=== PATIENT | female | born 1940 | race Caucasian/White ===

== ENCOUNTER 2018-01-23 16:58 | Inpatient (IN) ==
--- NOTE | 2018-01-23 17:02 | Emergency Department Note ---
Disposition Clinical Impression: COPD (chronic obstructive pulmonary disease), Acute exacerbation of chronic obstructive pulmonary disease (COPD), Hyperglycemia Disposition: Admitted As Inpatient Condition: Fair General Adult HPI - General Chief complaint: ED Shortness of Breath/Dyspnea Stated complaint: "sob" Time Seen by Provider: 01/23/18 17:00 - Related Data Home Medications Medication Instructions Recorded Confirmed Metformin HCl [Glucophage] 1,000 mg PO BID 09/02/16 01/23/18 Albuterol Sulfate [Ventolin Hfa] 2 puff IH Q4H PRN 01/23/18 01/23/18 Amoxicillin/Clavulanate [Augmentin] 1 tab PO BID 01/23/18 01/23/18 LORazepam [Ativan] 0.5 mg PO TID PRN 01/23/18 01/23/18 Losartan/Hydrochlorothiazide 1 tab PO DAILY 01/23/18 01/23/18 [Losartan-Hctz 50-12.5 mg Tab] Metoprolol Succinate [Toprol Xl] 25 mg PO DAILY 01/23/18 01/23/18 Pioglitazone HCl [Actos] 15 mg PO DAILY 01/23/18 01/23/18 Temazepam [Restoril] 30 mg PO HS 01/23/18 01/23/18 glipiZIDE [Glipizide] 20 mg PO BID 01/23/18 01/23/18 Allergies Allergy/AdvReac Type Severity Reaction Status Date / Time No Known Allergies Allergy Verified 01/01/18 17:03 Past Medical History - Past Medical History Medical history: Reports: coronary artery disease, diabetes, hypertension Psychiatric history: Reports: no psych history - Social History Smoking Status: Former smoker Smokeless Tobacco Status: No Alcohol use: Reports: none Drug use: Reports: none Course Vital Signs Temperature 97.3 F L 01/23/18 17:06 Pulse Rate 111 01/23/18 17:06 Respiratory Rate 18 01/23/18 17:06 Blood Pressure 150/86 01/23/18 17:06 O2 Sat by Pulse Oximetry 95 01/23/18 17:06 Temperature 98.5 F 01/23/18 20:11 Pulse Rate 111 01/23/18 20:11 Respiratory Rate 16 01/23/18 20:11 Blood Pressure 135/73 01/23/18 20:11 O2 Sat by Pulse Oximetry 94 01/23/18 20:11 Oxygen Delivery Oxygen Delivery Nasal Cannula Medical Decision Making - Lab Data Result diagrams: 01/23/18 17:26 01/23/18 17:26 Lab Results 01/23/18 01/23/18 01/23/18 Range/Units 17:26 17:26 17:26 WBC 10.9 (4.3-11.1) K/mcL RBC 4.43 (3.82-4.97) M/mcL Hgb 14.1 (11.5-15.4) g/dL Hct 41.4 (35.3-44.9) % MCV 93.5 (83.0-100.0) fL MCH 31.8 (28.0-33.3) pg MCHC 34.1 (31.6-35.5) g/dL RDW 12.5 (11.5-14.5) % Plt Count 211 (140-400) K/mcL MPV 11.4 (9.4-12.4) fL Immature Gran % 0.2 (0-4) % Seg Neutrophils % 67.5 % Lymphocytes % 21.6 % Monocytes % 9.2 % Eosinophils % 1.0 % Basophils % 0.5 % Neutrophils # 7.4 (1.6-8.9) K/mcL Lymphocytes # 2.4 (0.6-4.6) K/mcL Monocytes # 1.0 (0.0-1.3) K/mcL Eosinophils # 0.1 (0.0-0.6) K/mcL Basophils # 0.1 (0.0-0.2) K/mcL Sodium 138 (136-145) mEq/L Potassium 3.8 (3.5-5.1) mEq/L Chloride 105 (98-107) mEq/L Carbon Dioxide 19 L (23-29) mEq/L BUN 16 (8-23) mg/dL Creatinine 0.90 (0.60-1.20) mg/dL Est GFR ( Amer) > 60 (> 60) Est GFR (Non-Af Amer) > 60 (> 60) BUN/Creatinine Ratio 18 (6-26) Glucose 169 H (70-105) mg/dL Est Mean Plasma Glucose mg/dl Hemoglobin A1c ( - 5.6) % Calculated Osmolality 291 (280-300) Calcium 9.5 (8.6-10.3) mg/dL Troponin I < 0.03 (< 0.04) ng/mL B-Natriuretic Peptide 19 (Less than 100) pg/mL 01/23/18 Range/Units 17:26 WBC (4.3-11.1) K/mcL RBC (3.82-4.97) M/mcL Hgb (11.5-15.4) g/dL Hct (35.3-44.9) % MCV (83.0-100.0) fL MCH (28.0-33.3) pg MCHC (31.6-35.5) g/dL RDW (11.5-14.5) % Plt Count (140-400) K/mcL MPV (9.4-12.4) fL Immature Gran % (0-4) % Seg Neutrophils % % Lymphocytes % % Monocytes % % Eosinophils % % Basophils % % Neutrophils # (1.6-8.9) K/mcL Lymphocytes # (0.6-4.6) K/mcL Monocytes # (0.0-1.3) K/mcL Eosinophils # (0.0-0.6) K/mcL Basophils # (0.0-0.2) K/mcL Sodium (136-145) mEq/L Potassium (3.5-5.1) mEq/L Chloride (98-107) mEq/L Carbon Dioxide (23-29) mEq/L BUN (8-23) mg/dL Creatinine (0.60-1.20) mg/dL Est GFR ( Amer) (> 60) Est GFR (Non-Af Amer) (> 60) BUN/Creatinine Ratio (6-26) Glucose (70-105) mg/dL Est Mean Plasma Glucose 260 mg/dl Hemoglobin A1c 10.7 H ( - 5.6) % Calculated Osmolality (280-300) Calcium (8.6-10.3) mg/dL Troponin I (< 0.04) ng/mL B-Natriuretic Peptide (Less than 100) pg/mL Attestation Statement - Attestation Attestation: I examined this patient and my medical decision-making was reviewed with the Resident Physician. I agree with the documented findings, disposition and treatment plan as described except to the extent set forth below. [id number] time provided Patient arrives by EMS. She complains of cough and dyspnea. She has recently completed 2 separate antibiotics. She is not oxygen dependent. She has a nonproductive cough on exam
[2018-01-23] MEDS ORDERED: Ipratropium/Albuterol Neb 3 ML IH ONE (17:16)
[2018-01-23] MEDS ORDERED: methylPREDNISolone 125 MG/2 ML VIAL IVP ONE (17:16)
--- NOTE | 2018-01-23 17:20 | Emergency Department Note ---
Disposition Clinical Impression: Acute exacerbation of chronic obstructive pulmonary disease (COPD), Hyperglycemia COPD (chronic obstructive pulmonary disease) Qualifiers: COPD type: unspecified COPD Qualified Code(s): J44.9 - Chronic obstructive pulmonary disease, unspecified Disposition: Admitted As Inpatient Condition: Fair Time of Disposition: 18:28 SOB HPI - General Chief Complaint: ED Shortness of Breath/Dyspnea Stated Complaint: "sob" Time Seen by Provider: 01/23/18 17:00 Source: patient, family, EMS Mode of arrival: EMS Limitations: no limitations Nursing Notes Reviewed: Yes Vital Signs Reviewed: Yes - History of Present Illness 77-year-old female with a history of hypertension, diabetes, former smoker presents for evaluation of dyspnea. Patient states symptom onset is been over the past month. States she is side to providers during that timeframe and her symptoms have not improved. Patient states she was at urgent care a couple weeks ago and was prescribed an antibiotic, steroid, and nebulized treatments. Patient states that she continued to have symptoms following relief that therapy. Patient saw her doctor on Friday and was prescribed a second antibiotic. Patient states that her symptoms are not improved. Patient is not any steroids currently. Patient denies any fevers. Does note a white clear sputum. Patient denies any chest pain. Denies any lower leg swelling. No history of ACS or congestive heart failure. No history of PE or DVTs. EMS reported the patient was 91% on room air and does not have oxygen at baseline. Family was concerned that the patient was conversational dyspneic earlier today and prompted the patient to go to the ER. - Related Data Home Medications Medication Instructions Recorded Confirmed Metformin HCl [Glucophage] 1,000 mg PO BID 09/02/16 01/23/18 Albuterol Sulfate [Ventolin Hfa] 2 puff IH Q4H PRN 01/23/18 01/23/18 Amoxicillin/Clavulanate [Augmentin] 1 tab PO BID 01/23/18 01/23/18 LORazepam [Ativan] 0.5 mg PO TID PRN 01/23/18 01/23/18 Losartan/Hydrochlorothiazide 1 tab PO DAILY 01/23/18 01/23/18 [Losartan-Hctz 50-12.5 mg Tab] Metoprolol Succinate [Toprol Xl] 25 mg PO DAILY 01/23/18 01/23/18 Pioglitazone HCl [Actos] 15 mg PO DAILY 01/23/18 01/23/18 Temazepam [Restoril] 30 mg PO HS 01/23/18 01/23/18 glipiZIDE [Glipizide] 20 mg PO BID 01/23/18 01/23/18 Allergies Allergy/AdvReac Type Severity Reaction Status Date / Time No Known Allergies Allergy Verified 01/01/18 17:03 All systems ED: reviewed and negative except as stated. Constitutional: Denies: fever Cardiovascular: Denies: chest pain Respiratory: Reports: cough, dyspnea, sputum production. Denies: wheezes Gastrointestinal: Denies: abdominal pain, nausea, vomiting Past Medical History - Past Medical History Source: patient, obtained from family Medical history: Reports: coronary artery disease, diabetes, hypertension Psychiatric history: Reports: no psych history - Social History Smoking Status: Former smoker Smokeless Tobacco Status: No Alcohol use: Reports: none Drug use: Reports: none Physical Exam - General Limitations: no limitations General appearance: alert, in no apparent distress - Head Head exam: atraumatic - Eye Eye exam: Present: normal appearance - ENT ENT exam: normal exam, mucous membranes moist - Neck Neck exam: Present: normal inspection - Chest Chest inspection: Present: normal inspection, symmetric chest wall rise - Respiratory Respiratory exam: Present: prolonged expiratory phase, other (diminished bibasilar.). Absent: respiratory distress - Cardiovascular Cardiovascular exam: Present: normal rhythm, tachycardia. Absent: systolic murmur - Abdominal Exam Abdominal exam: Present: soft, Non-Tender - Extremities Exam Extremities exam: Present: normal inspection. Absent: pedal edema - Expanded Lower Extremity Exam Neurovascular/Tendon exam: Present: normal capillary refill - Back Exam Back exam: Present: normal inspection - Neurological Exam Neurological exam: Present: alert, oriented X3 - Skin Skin exam: Present: warm, dry, intact, normal color Course Course Narrative: Patient seen and examined. Patient presents with signs symptoms consistent of COPD exacerbation. Patient does have history of being a former smoker however the family continues to smoke and the patient's continued to be exposed to secondhand smoke. Will check basic labs chest x-ray nebs and steroids. Disposition likely admission as the patient is hypoxic requiring oxygen. - Reevaluation(s) Reevaluation #1: Patient seen and examined. Patient states her breathing has improved. Patient' s lungs appear clear. Patient remains tachycardic however still likely secondary to her recent therapy with nebs. Awaiting labs. No needs at this time. Time: 18:16 Reevaluation #2: Seen and examined. Patient's family at bedside. Updated on plan of care. Time: 19:14 Vital Signs Temperature 97.3 F L 01/23/18 17:06 Pulse Rate 111 01/23/18 17:06 Respiratory Rate 18 01/23/18 17:06 Blood Pressure 150/86 01/23/18 17:06 O2 Sat by Pulse Oximetry 95 01/23/18 17:06 Temperature 98.5 F 01/23/18 20:11 Pulse Rate 111 01/23/18 20:11 Respiratory Rate 16 01/23/18 20:11 Blood Pressure 135/73 01/23/18 20:11 O2 Sat by Pulse Oximetry 94 01/23/18 20:11 Oxygen Delivery Oxygen Delivery Nasal Cannula Shortness of Breath/Dyspnea - MDM Narrative Medical decision making narrative: 69-year-old female patients for evaluation of dyspnea. Patient does have a 3 week history of said symptoms. Appeared to intermittently improve following treatment with bronchitis for the past couple weeks with however has recurred. Patient does have a chronic smoking history and is exposed to secondhand smoke. Patient was conversational dyspneic per family prior to arrival. Patient received nebs and steroids. Patient's ED evaluations consistent with a COPD exacerbation. Given the patient's sputum production antibiotics were initiated. Patient is requiring some oxygen supplementation and does not have oxygen at home. Patient will require aggressive nebs as well as close monitoring. Patient will be admitted to the hospital service for continued aerosols, IV antibiotics and oxygen therapy. Patient's symptoms are less consistent with a pulmonary embolism. Given the timeframe as well as the patient's history of smoking with improvement initially with bronchodilators and steroids the patient likely has an element of chronic bronchitis AND will be admitted for an acute exacerbation. - Lab Data Lab results reviewed: Yes I reviewed the patient's lab results. Result diagrams: 01/23/18 17:26 01/23/18 17:26 Lab Results 01/23/18 01/23/18 01/23/18 Range/Units 17:26 17:26 17:26 WBC 10.9 (4.3-11.1) K/mcL RBC 4.43 (3.82-4.97) M/mcL Hgb 14.1 (11.5-15.4) g/dL Hct 41.4 (35.3-44.9) % MCV 93.5 (83.0-100.0) fL MCH 31.8 (28.0-33.3) pg MCHC 34.1 (31.6-35.5) g/dL RDW 12.5 (11.5-14.5) % Plt Count 211 (140-400) K/mcL MPV 11.4 (9.4-12.4) fL Immature Gran % 0.2 (0-4) % Seg Neutrophils % 67.5 % Lymphocytes % 21.6 % Monocytes % 9.2 % Eosinophils % 1.0 % Basophils % 0.5 % Neutrophils # 7.4 (1.6-8.9) K/mcL Lymphocytes # 2.4 (0.6-4.6) K/mcL Monocytes # 1.0 (0.0-1.3) K/mcL Eosinophils # 0.1 (0.0-0.6) K/mcL Basophils # 0.1 (0.0-0.2) K/mcL Sodium 138 (136-145) mEq/L Potassium 3.8 (3.5-5.1) mEq/L Chloride 105 (98-107) mEq/L Carbon Dioxide 19 L (23-29) mEq/L BUN 16 (8-23) mg/dL Creatinine 0.90 (0.60-1.20) mg/dL Est GFR ( Amer) > 60 (> 60) Est GFR (Non-Af Amer) > 60 (> 60) BUN/Creatinine Ratio 18 (6-26) Glucose 169 H (70-105) mg/dL Est Mean Plasma Glucose mg/dl Hemoglobin A1c ( - 5.6) % Calculated Osmolality 291 (280-300) Calcium 9.5 (8.6-10.3) mg/dL Troponin I < 0.03 (< 0.04) ng/mL B-Natriuretic Peptide 19 (Less than 100) pg/mL 01/23/18 Range/Units 17:26 WBC (4.3-11.1) K/mcL RBC (3.82-4.97) M/mcL Hgb (11.5-15.4) g/dL Hct (35.3-44.9) % MCV (83.0-100.0) fL MCH (28.0-33.3) pg MCHC (31.6-35.5) g/dL RDW (11.5-14.5) % Plt Count (140-400) K/mcL MPV (9.4-12.4) fL Immature Gran % (0-4) % Seg Neutrophils % % Lymphocytes % % Monocytes % % Eosinophils % % Basophils % % Neutrophils # (1.6-8.9) K/mcL Lymphocytes # (0.6-4.6) K/mcL Monocytes # (0.0-1.3) K/mcL Eosinophils # (0.0-0.6) K/mcL Basophils # (0.0-0.2) K/mcL Sodium (136-145) mEq/L Potassium (3.5-5.1) mEq/L Chloride (98-107) mEq/L Carbon Dioxide (23-29) mEq/L BUN (8-23) mg/dL Creatinine (0.60-1.20) mg/dL Est GFR ( Amer) (> 60) Est GFR (Non-Af Amer) (> 60) BUN/Creatinine Ratio (6-26) Glucose (70-105) mg/dL Est Mean Plasma Glucose 260 mg/dl Hemoglobin A1c 10.7 H ( - 5.6) % Calculated Osmolality (280-300) Calcium (8.6-10.3) mg/dL Troponin I (< 0.04) ng/mL B-Natriuretic Peptide (Less than 100) pg/mL - Radiology Data Radiology results reviewed: Yes I reviewed the patient's radiology results. Chest X-Ray 01/23/18 17:16 IMPRESSION: No acute abnormality. D/ / Cesar Hicks MD / Cesar Hicks MD Interpreting Provider: Cesar Hicks MD - EKG Data EKG attestation: Yes I reviewed and interpreted this EKG. EKG shows normal: Reports: sinus rhythm Rate: Reports: tachycardia Rhythm: Reports: NSR Hettinger/QRS: Reports: normal, LBBB Interpretation: Reports: no acute changes, unchanged when compared to prior tracing (date), nonspecific ST-T wave changes S.Donell - Carl Situation: Demographics Background: Presenting Complaint Assessment: Vital Signs, Course and respsone to treatment, Patient/Family Expectation Recommendation: Barrier(s) to disposition, Recommendation based on pending studies, treatments, or consults Carl Report Given to: Dr. Margarito Henry Repor Time: 18:43
[2018-01-23] MEDS ORDERED: predniSONE 20 MG TABLET PO ONE (17:22)
[2018-01-23 17:38] LABS: Basophils # 0.1 K/mcL (0.0-0.2); Basophils % 0.5 %; Eosinophils # 0.1 K/mcL (0.0-0.6); Hematocrit 41.4 % (35.3-44.9); Hemoglobin 14.1 g/dL (11.5-15.4); Immature Granulocytes % 0.2 % (0-4); Lymphocytes # 2.4 K/mcL (0.6-4.6); Lymphocytes % 21.6 %; Mean Corpuscular HGB Conc 34.1 g/dL (31.6-35.5); Mean Corpuscular Hemoglobin 31.8 pg (28.0-33.3); Mean Corpuscular Volume 93.5 fL (83.0-100.0); Mean Platelet Volume 11.4 fL (9.4-12.4); Monocytes % 9.2 %; Neutrophils # 7.4 K/mcL (1.6-8.9); Platelet Count 211 K/mcL (140-400); Red Blood Count 4.43 M/mcL (3.82-4.97); Red Cell Distribution Width 12.5 % (11.5-14.5); Segmented Neutrophils % 67.5 %
[2018-01-23 18:02] LABS: BUN/Creatinine Ratio 18 (6-26); Blood Urea Nitrogen 16 mg/dL (8-23); Calcium 9.5 mg/dL (8.6-10.3); Carbon Dioxide 19 mEq/L (23-29); Chloride 105 mEq/L (98-107); Glucose 169 mg/dL (70-105); Osmolality,Calculated 291 (280-300); Potassium 3.8 mEq/L (3.5-5.1); Sodium 138 mEq/L (136-145); eGFR For Non-African Americans > 60 (> 60)
[2018-01-23 18:03] LABS: Troponin I < 0.03 ng/mL (< 0.04)
[2018-01-23] MEDS ORDERED: Azithromycin 250 MG TABLET PO ONE (18:21)
[2018-01-23] MEDS ORDERED: cefTRIAXone 1,000 MG in Water for inj. (sterile) 20 ML 10 ML IVP ONE (18:21)
[2018-01-23] MEDS ORDERED: 0.9 % Sodium Chloride 500 ML IVC ONE (18:28)
[2018-01-23] MEDS ORDERED: Naloxone 0.4 MG/ML INJ IVP PRN (19:27)
[2018-01-23] MEDS ORDERED: *HR* LORazepam 0.5 MG TABLET PO PRN (19:29)
[2018-01-23] MEDS ORDERED: *HR* Dextrose 50 % in Water (Syg) 50 ML SYRINGE IVP PRN (19:30)
[2018-01-23] MEDS ORDERED: Dextrose Gel 15 GM/37.5 ML TUBE PO PRN ×2 (19:30)
[2018-01-23] MEDS ORDERED: D5% in Water 1,000 ML IVC PRN (19:30)
[2018-01-23] MEDS: Ipratropium/Albuterol Neb 3 ML IH SCH ×2 (19:55→23:32)
[2018-01-23 19:56] LABS: Estimated Average Glucose 260 mg/dl; Hemoglobin A1C 10.7 %
--- NOTE | 2018-01-23 20:56 | Internal Med History&Physical ---
Date of Encounter: 01/23/18 Time of Encounter: 20:45 Internal Medicine - H&P: HPI Chief complaint: Shortness of breath, coughing and wheezing of about a month duration History of present illness: Ms. Dumas is a 77 year old female with pmh of tobacco abuse, hypertension , diabetes presenting with complaints of shortness of breath of a month duration. Patient notes she doesn't have a prior diagnosis of COPD and symptoms were sudden onset. She says she swallowed a lewis seed and went to the ER, and has been short of breath, and wheezing ever since even though all images came back negative in the ER. She has been to urgent care twice in amonth with no relief and she was discharged on antibiotics and inhalers with no relief. She came to the ER today with worsening, shortness of breath, wheezing and cough productive of phlegm. She denies any fevers, chills or any ther acute symptoms. Her symptoms improved with breathing treatments, steroids and antibiotics in the ER Past Med Surg Social Fam HX - Past Medical History Medical history: coronary artery disease, diabetes, hypertension Psychiatric history: no psych history - Social History Smoking Status: Former smoker Smokeless Tobacco Status: No Alcohol use: none Drug use: none Internal Medicine - H&P: Meds Metformin HCl [Glucophage] 1,000 mg PO BID 09/02/16 [History] Albuterol Sulfate [Ventolin Hfa] 2 puff IH Q4H PRN 01/23/18 [History] Amoxicillin/Clavulanate [Augmentin] 1 tab PO BID 01/23/18 [History] LORazepam [Ativan] 0.5 mg PO TID PRN 01/23/18 [History] Losartan/Hydrochlorothiazide [Losartan-Hctz 50-12.5 mg Tab] 1 tab PO DAILY 01/23 [History] Metoprolol Succinate [Toprol Xl] 25 mg PO DAILY 01/23/18 [History] Pioglitazone HCl [Actos] 15 mg PO DAILY 01/23/18 [History] Temazepam [Restoril] 30 mg PO HS 01/23/18 [History] glipiZIDE [Glipizide] 20 mg PO BID 01/23/18 [History] 3 Allergy/AdvReac Type Severity Reaction Status Date / Time No Known Allergies Allergy Verified 01/01/18 17:03 All Systems PM: A 10-system review of systems was performed and is negative for pertinent findings except as documented above in the HPI. - Constitutional Constitutional: no chills, no fever(s), no night sweats - EENT Eyes: no change in vision, no discharge, no pain, no photophobia Ears: no ear discharge, no ear pain, no tinnitus Nose, mouth and throat: no dysphagia, no nasal discharge, no neck pain, no sore throat - Cardiovascular Cardiovascular ROS IM: dyspnea, no chest pain, no diaphoresis, no lightheadedness, no palpitations, no syncope - Respiratory Respiratory: cough, dyspnea, wheezing, no excessive phlegm production - Gastrointestinal Gastrointestinal: no abdominal pain, no diarrhea, no hematemesis, no hematochezia, no melena, no nausea, no vomiting - Genitourinary Genitourinary: no change in urinary stream, no dysuria, no flank pain, no hematuria - Musculoskeletal Musculoskeletal ROS IM: no numbness, no tingling - Integumentary Integumentary IM: no rash, no unusual bruising - Neurological Neurological ROS: no confusion, no convulsions, no focal weakness, no numbness, no tingling, no tremor(s) - Hematologic/Lymphatic Hematologic/Lymphatic: no easy bruising - Constitutional Vitals: Temp Pulse Resp BP Pulse Ox 98.5 F 111 16 135/73 94 01/23/18 20:11 01/23/18 20:11 01/23/18 20:11 01/23/18 20:11 01/23/18 20:11 - Head Head exam: Present: atraumatic, normocephalic - Eye Eye exam: Present: PERRL, conjuntiva pink, sclera anicteric Pupils: Present: PERRL - Neck Neck exam general surgery: Present: supple, trachea midline. Absent: lymphadenopathy - Respiratory Respiratory exam: Present: wheezes. Absent: accessory muscle use, rales, rhonchi - Cardiovascular Cardiovascular exam: Present: RRR, +S1, +S2. Absent: diastolic murmur, gallop, rubs, systolic murmur - GI/Abdominal GI/Abdominal exam: Present: normal bowel sounds, soft, no peritoneal signs. Absent: distended, tenderness - Extremities Exam Extremities exam: Present: warm, radial pulses palpable and symmetrical. Absent : calf tenderness, cyanotic, pedal edema - Neurological Exam Neurological exam: Present: CN II-XII intact, oriented X3, no focal deficits. Absent: pronater drift, facial droop, speech deficit - Skin Skin exam: Present: dry, intact Internal Med - H&P Results - Labs CBC & Chem 7: 01/23/18 17:26 01/23/18 17:26 - Assessment and plan (1) Acute exacerbation of chronic obstructive pulmonary disease (COPD) Current Visit: Yes Status: Acute Assessment and plan: Pt has no prior diagnosis of COPD, but has been wheezing, short of breath and coughing. These were relieved by breathing treatments in the ER. Will start on round the clock nebs, antibiotics and IV steroids with methylprednisolone. Patient will likely need outpatient PFTS (2) Diabetes Current Visit: Yes Status: Acute Assessment and plan: Continue on insulin and oral hypoglycemics. Patient has good kidney function Qualifiers: Diabetes mellitus type: type 2 Qualified Code(s): E11.9 - Type 2 diabetes mellitus without complications (3) Hypertension Current Visit: Yes Status: Acute Assessment and plan: Resume home meds with losartan/HCTZ and beta blockers Qualifiers: Qualified Code(s): I10 - Essential (primary) hypertension (4) DVT prophylaxis Current Visit: Yes Status: Acute Assessment and plan: Heparin sc - Time Spent With Patient Total time spent is greater than 50% in coordination of care (as documented) at patient's floor/unit and/or counseling patient:
[2018-01-23] MEDS: *HR* GlipiZIDE 5 MG TABLET PO SCH (21:59)
[2018-01-23] MEDS: Temazepam 15 MG CAPSULE PO SCH (23:07)
[2018-01-23] MEDS: Budesonide/Formoterol 160/4.5 1 PUFF INH IH SCH (23:32)
[2018-01-24] MEDS: Insulin LISPRO 300 UNITS/3 ML VIAL SQ SCH ×4 (02:06→17:10)
[2018-01-24] MEDS: methylPREDNISolone 125 MG/2 ML VIAL IVP SCH ×2 (02:17→09:19)
[2018-01-24] MEDS: Ipratropium/Albuterol Neb 3 ML IH SCH ×6 (04:00→23:41)
[2018-01-24 05:35] LABS: Basophils % 0.2 %; Hematocrit 38.4 % (35.3-44.9); Hemoglobin 12.8 g/dL (11.5-15.4); Immature Granulocytes % 0.4 % (0-4); Lymphocytes # 0.7 K/mcL (0.6-4.6); Lymphocytes % 13.1 %; Mean Corpuscular HGB Conc 33.3 g/dL (31.6-35.5); Mean Corpuscular Hemoglobin 31.3 pg (28.0-33.3); Mean Corpuscular Volume 93.9 fL (83.0-100.0); Mean Platelet Volume 11.8 fL (9.4-12.4); Monocytes # 0.1 K/mcL (0.0-1.3); Monocytes % 2.1 %; Neutrophils # 4.8 K/mcL (1.6-8.9); Platelet Count 153 K/mcL (140-400); Red Blood Count 4.09 M/mcL (3.82-4.97); Red Cell Distribution Width 12.5 % (11.5-14.5); Segmented Neutrophils % 84.2 %
[2018-01-24 05:52] LABS: BUN/Creatinine Ratio 20 (6-26); Blood Urea Nitrogen 19 mg/dL (8-23); Calcium 9.1 mg/dL (8.6-10.3); Carbon Dioxide 19 mEq/L (23-29); Chloride 103 mEq/L (98-107); Glucose 478 mg/dL (70-105); Magnesium 1.8 mg/dL (1.6-2.6); Osmolality,Calculated 307 (280-300); Phosphorous 3.4 mg/dL (2.7-4.5); Potassium 3.6 mEq/L (3.5-5.1); Sodium 137 mEq/L (136-145); eGFR For Non-African Americans 58 (> 60)
[2018-01-24] MEDS: *HR* Heparin 5,000 UNIT/ML VIAL SQ SCH ×2 (05:54→16:15)
[2018-01-24] MEDS: Budesonide/Formoterol 160/4.5 1 PUFF INH IH SCH ×2 (07:38→19:42)
[2018-01-24] MEDS ORDERED: Levofloxacin 750 MG/150 ML 750 MG/150 ML BAG IVPB SCH (09:00)
[2018-01-24] MEDS: Losartan/HCTZ 50-12.5 TABLET PO SCH (09:20)
[2018-01-24] MEDS: Metoprolol XL (24 HR) Succ 25 MG TAB.ER.24H PO SCH (09:20)
[2018-01-24] MEDS: *HR* Pioglitazone 15 MG TABLET PO SCH (09:20)
[2018-01-24] MEDS: *HR* GlipiZIDE 5 MG TABLET PO SCH ×2 (09:23→20:11)
--- NOTE | 2018-01-24 10:03 | Internal Med Progress Note ---
Hospitalist Progress Note - Encounter Date of Encounter: 01/24/18 Time of Encounter: 09:37 - Subjective Interval History: Seen and evaluated at the bedside She reports improvement in her breathing However, FS have been uncontrolled, patient was earlier refusing insulin but now agrees to it No other complains - Exam Vitals: Temp Pulse Resp BP Pulse Ox 97.6 F 110 18 170/79 95 01/24/18 08:34 01/24/18 08:34 01/24/18 08:34 01/24/18 08:34 01/24/18 08:34 Exam: VSS Gen: Sitting comfortably in bed, not in distress HEENT: Moist oral mucosa, not cyanotic, not pale Chest: Few scattered wheezes bilaterally Heart: S1, S2 only, no m/g/r Abdomen: Soft, not tender, no palpably enlarged organs, BS + Extremities: No edema Skin: No rash - Assessment and Plan (1) Acute exacerbation of chronic obstructive pulmonary disease (COPD) Current Visit: Yes Status: Acute Assessment and Plan: Continue duonebs and antibiotics Begin tapering steroids Continue O2 supplement and wean prn (2) Diabetes Current Visit: Yes Status: Chronic Assessment and Plan: Continue on insulin and oral hypoglycemics. Patient has good kidney function (3) Hypertension Current Visit: Yes Status: Chronic Assessment and Plan: Continue home meds with losartan/HCTZ and beta blockers (4) DVT prophylaxis Current Visit: Yes Status: Acute Assessment and Plan: Heparin sc - Time Spent with Patient Total time spent is greater than 50% in coordination of care (as documented) at patient's floor/unit and/or counseling patient: Plan of Care Discussed with: patient Internal Medicine: Result - Labs CBC & Chem 7: 01/24/18 05:16 01/24/18 05:16 Labs: Short CBC 01/24/18 Range/Units 05:16 WBC 5.7 (4.3-11.1) K/mcL Hgb 12.8 (11.5-15.4) g/dL Hct 38.4 (35.3-44.9) % Plt Count 153 (140-400) K/mcL Neutrophils # 4.8 (1.6-8.9) K/mcL BMP 01/24/18 05:16 Sodium 137 Potassium 3.6 Chloride 103 Carbon Dioxide 19 L BUN 19 Creatinine 0.93 Glucose 478 H Calcium 9.1 Consult Discharge Plan - Plan Referrals: Magda Irene, [facility] [Primary Care Provider] - (2) Diabetes Qualifiers: Diabetes mellitus type: type 2 Qualified Code(s): E11.9 - Type 2 diabetes mellitus without complications (3) Hypertension Qualifiers: Qualified Code(s): I10 - Essential (primary) hypertension
[2018-01-24] MEDS: Temazepam 15 MG CAPSULE PO SCH (22:13)
[2018-01-25] MEDS: Ipratropium/Albuterol Neb 3 ML IH SCH ×3 (04:11→11:45)
[2018-01-25] MEDS: *HR* Heparin 5,000 UNIT/ML VIAL SQ SCH (06:13)
[2018-01-25 06:54] VITALS: BP 131/75
[2018-01-25 07:11] LABS: Basophils % 0.3 %; Eosinophils % 0.1 %; Hematocrit 37.1 % (35.3-44.9); Hemoglobin 12.6 g/dL (11.5-15.4); Immature Granulocytes % 0.4 % (0-4); Lymphocytes # 2.4 K/mcL (0.6-4.6); Lymphocytes % 21.8 %; Mean Corpuscular Hemoglobin 32.4 pg (28.0-33.3); Mean Corpuscular Volume 95.4 fL (83.0-100.0); Mean Platelet Volume 11.6 fL (9.4-12.4); Monocytes # 0.8 K/mcL (0.0-1.3); Monocytes % 7.2 %; Neutrophils # 7.8 K/mcL (1.6-8.9); Platelet Count 158 K/mcL (140-400); Red Blood Count 3.89 M/mcL (3.82-4.97); Red Cell Distribution Width 12.6 % (11.5-14.5); Segmented Neutrophils % 70.2 %
[2018-01-25] MEDS: Budesonide/Formoterol 160/4.5 1 PUFF INH IH SCH (07:42)
[2018-01-25] MEDS: Metoprolol XL (24 HR) Succ 25 MG TAB.ER.24H PO SCH (08:51)
[2018-01-25] MEDS: *HR* GlipiZIDE 5 MG TABLET PO SCH (08:51)
[2018-01-25] MEDS: Losartan/HCTZ 50-12.5 TABLET PO SCH (08:51)
[2018-01-25] MEDS: *HR* Pioglitazone 15 MG TABLET PO SCH (08:51)
[2018-01-25] MEDS: Insulin LISPRO 300 UNITS/3 ML VIAL SQ SCH ×2 (08:51→11:45)
[2018-01-25] MEDS ORDERED: Levofloxacin 750 MG/150 ML 750 MG/150 ML BAG IVPB SCH (09:00)
[2018-01-25] MEDS ORDERED: predniSONE 20 MG TABLET PO SCH (09:00)
[2018-01-25 09:51] LABS: BUN/Creatinine Ratio 20 (6-26); Blood Urea Nitrogen 16 mg/dL (8-23); Carbon Dioxide 25 mEq/L (23-29); Chloride 106 mEq/L (98-107); Glucose 224 mg/dL (70-105); Osmolality,Calculated 298 (280-300); Potassium 3.5 mEq/L (3.5-5.1); Sodium 140 mEq/L (136-145); eGFR For Non-African Americans > 60 (> 60)
--- NOTE | 2018-01-25 11:10 | Discharge Summary ---
- NOTES TO OUTPATIENT PROVIDER Notes to Outpatient Provider: f/u with pulmonary in 2 weeks for PFT. f/u with PCP as scheduled. Date of Encounter: 01/25/18 Time of Encounter: 11:05 - Discharge Diagnosis (1) Acute exacerbation of chronic obstructive pulmonary disease (COPD) Priority: Primary Status: Acute (2) Diabetes Priority: Secondary Status: Chronic Qualifiers: Diabetes mellitus type: type 2 Diabetes mellitus complication status: without complication Qualified Code(s): E11.9 - Type 2 diabetes mellitus without complications (3) Hypertension Priority: Secondary Status: Chronic Qualifiers: Hypertension type: essential hypertension Qualified Code(s): I10 - Essential (primary) hypertension (4) DVT prophylaxis Priority: Primary Status: Acute Hospital course: Ms. Dumas is a 77 year old female with pmh of tobacco abuse, hypertension, diabetes presenting with complaints of shortness of breath of a month duration. Patient notes she doesn't have a prior diagnosis of COPD and symptoms were sudden onset after she swallowed and choked with fluid seeds. She has been to urgent care twice in a month with no relief and she was discharged on antibiotics and inhalers with no relief. She came to the ER today with worsening , shortness of breath, wheezing and cough productive of phlegm. Chest x-ray showed no pneumonia. Patient's symptoms was suspected due to COPD exacerbation , triggered by possible acute bronchitis. She was placed on IV Levaquin, bronchodilators, and the steroids. Her symptoms have improved and now she feels at her baseline. Patient will be discharged home today. She was instructed to continue oral steroids for 3 more days, oral antibiotics for 7 more days, and bronchodilators as needed. Patient was instructed to schedule for outpatient pulmonary function test. She will also follow-up with PCP as scheduled. Time spent discussing smoking cessation with patient: more than 10 minutes - Time Spent with Patient Total time spent providing and/or coordinating discharge services: Greater than 30 minutes - Discharge Medications Prescriptions: levoFLOXacin [Levaquin] 750 mg PO DAILY #7 tablet predniSONE [PredniSONE] 40 mg PO DAILY #3 tablet Home Medications: Metformin HCl [Glucophage] 1,000 mg PO BID 09/02/16 [History] Albuterol Sulfate [Ventolin Hfa] 2 puff IH Q4H PRN 01/23/18 [History] LORazepam [Ativan] 0.5 mg PO TID PRN 01/23/18 [History] Losartan/Hydrochlorothiazide [Losartan-Hctz 50-12.5 mg Tab] 1 tab PO DAILY 01/23 [History] Metoprolol Succinate [Toprol Xl] 25 mg PO DAILY 01/23/18 [History] Pioglitazone HCl [Actos] 15 mg PO DAILY 01/23/18 [History] Temazepam [Restoril] 30 mg PO HS 01/23/18 [History] glipiZIDE [Glipizide] 20 mg PO BID 01/23/18 [History] levoFLOXacin [Levaquin] 750 mg PO DAILY #7 tablet 01/25/18 [Rx] predniSONE [PredniSONE] 40 mg PO DAILY #3 tablet 01/25/18 [Rx] Allergies/Adverse Reactions: 3 Allergy/AdvReac Type Severity Reaction Status Date / Time No Known Allergies Allergy Verified 01/01/18 17:03 Date of admission: 01/23/18 19:27 Primary care physician: Magda Irene CNP Anticipated date of discharge: 01/25/18 - Constitutional Vitals: Temp Pulse Resp BP Pulse Ox 97.6 F 89 16 131/75 97 01/25/18 06:53 01/25/18 06:53 01/25/18 06:53 01/25/18 06:53 01/25/18 06:53 General appearance: Present: A&O X 3 Exam: PHYSICAL EXAMINATION: GENERAL APPEARANCE: The patient is alert, oriented and in no acute distress. HEENT: Head is normocephalic. The sinuses are nontender. Pupils are equal and reactive. The nares are patent. Oropharynx clear without lesions. NECK: Supple without lymphadenopathy. HEART: Regular rate and rhythm. LUNGS: No crackles or wheezes are heard. ABDOMEN: Soft, nontender, nondistended with good bowel sounds heard. Inguinal area is normal. EXTREMITIES: Without cyanosis, clubbing or edema. NEUROLOGICAL: Gross nonfocal. SKIN: Warm and dry without any rash. - Patient Status Disposition: Home, Self-Care Condition: Fair Functional capacity at discharge: independent ambulation Overall status at discharge: patient is back to baseline - Discharge Instructions Instructions: Chronic Obstructive Pulmonary Disease (DC) Follow Up With: Magda Irene CNP [Primary Care Provider] - - Diet and Activity Activity: increase activity as tolerated Diet: diabetic diet
[2018-01-26] MEDS ORDERED: levoFLOXacin 750 MG TABLET PO SCH (09:00)
--- NOTE | 2018-01-26 09:25 | Electrocardiograph Report ---
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
== END 2018-01-25 11:52 | disposition home or self-care (01) | DRG 192 ==
LOC: EMEROO 16:58 → 3BNU 16:58
PROVIDERS: ADMIT Internal Medicine; ATTEND Internal Medicine

== ENCOUNTER 2021-01-12 14:25 | Observation (INO) ==
[2021-01-12 15:00] LABS: Hematocrit 38.9 % (35.3-44.9); Hemoglobin 12.6 g/dL (11.5-15.4); Mean Corpuscular HGB Conc 32.4 g/dL (31.6-35.5); Mean Corpuscular Hemoglobin 31.8 pg (28.0-33.3); Mean Corpuscular Volume 98.2 fL (83.0-100.0); Mean Platelet Volume 10.6 fL (9.4-12.4); Platelet Count 259 K/mcL (140-400); Red Blood Count 3.96 M/mcL (3.82-4.97); Red Cell Distribution Width 13.2 % (11.5-14.5); White Blood Count 10.9 K/mcL (4.3-11.1)
[2021-01-12 15:20] LABS: Albumin 4.2 g/dL (3.5-5.7); Albumin/Globulin Ratio 1.4 (1.1-2.2); Bilirubin,Direct 0.1 mg/dL (0.0-0.2); Bilirubin,Indirect 0.4 mg/dL (0.0-1.0); Bilirubin,Total 0.5 mg/dL (0.3-1.0); Calcium 9.7 mg/dL (8.6-10.3); Globulin 2.9 g/dL (2.4-3.5); Potassium 4.3 mEq/L (3.5-5.1); Total Protein 7.1 g/dL (6.4-8.9)
[2021-01-12 15:41] LABS: Bacteria,Urine Few per hpf (None-Few); Bilirubin,Urine Negative (Negative); Blood,Urine Negative (Negative); Clarity,Urine Clear (Clear); Color,Urine Light-Yellow (Yellow); Glucose,Urine (UA) Normal (Normal); Hyaline Casts,Urine Few per lpf (None Seen); Ketones,Urine Negative (Negative); Leukocyte Esterase,Urine Large (Negative); Mucus,Urine Few per lpf (None-Few); Nitrite,Urine Negative (Negative); PH,Urine 5.5 pH Units (5.0-8.0); Protein,Urine Trace mg/dL (Neg-Trace); Specific Gravity,Urine 1.023 (1.010-1.025); Squamous Epithelial Cell,Urine Few per hpf (None-Few); Urobilinogen,Urine Normal (Normal); WBC,Urine 50-100 per hpf (0-3)
[2021-01-12] MEDS ORDERED: MOM Conc 10 ML UD.LIQ PO PRN (16:05)
[2021-01-12] MEDS ORDERED: Mag Hydrox/Al Hydrox/Simeth 30 ML UDC PO PRN (16:05)
[2021-01-12] MEDS ORDERED: Naloxone 0.4 MG/ML INJ IVP PRN (16:05)
[2021-01-12] MEDS ORDERED: Melatonin 3 MG TABLET PO PRN (16:05)
[2021-01-12] MEDS ORDERED: Ondansetron 4 MG/2 ML VIAL IVP PRN (16:05)
[2021-01-12] MEDS ORDERED: *HR* Dextrose 50 % in Water (Vial) 50 ML VIAL IVP ONE (16:09)
[2021-01-12] MEDS ORDERED: *HR* Dextrose 50 % in Water (Vial) 50 ML VIAL ONE (16:10)
[2021-01-12] MEDS: 0.9 % Sodium Chloride 1,000 ML IVC SCH (17:14)
[2021-01-12] MEDS: *HR* Heparin 5,000 UNIT/ML VIAL SQ SCH (17:14)
[2021-01-12] MEDS: Temazepam 15 MG CAPSULE PO PRN (22:04)
[2021-01-13 00:41] LABS: Hematocrit 34.2 % (35.3-44.9); Hemoglobin 11.4 g/dL (11.5-15.4); Mean Corpuscular HGB Conc 33.3 g/dL (31.6-35.5); Mean Corpuscular Hemoglobin 32.6 pg (28.0-33.3); Mean Corpuscular Volume 97.7 fL (83.0-100.0); Mean Platelet Volume 10.6 fL (9.4-12.4); Platelet Count 219 K/mcL (140-400); Red Cell Distribution Width 13.2 % (11.5-14.5); White Blood Count 9.6 K/mcL (4.3-11.1)
[2021-01-13 01:05] LABS: Albumin 3.7 g/dL (3.5-5.7); Albumin/Globulin Ratio 1.4 (1.1-2.2); Bilirubin,Total 0.5 mg/dL (0.3-1.0); Calcium 9.2 mg/dL (8.6-10.3); Globulin 2.6 g/dL (2.4-3.5); Total Protein 6.3 g/dL (6.4-8.9)
[2021-01-13] MEDS: *HR* Heparin 5,000 UNIT/ML VIAL SQ SCH ×2 (05:20→15:34)
[2021-01-13] MEDS: 0.9 % Sodium Chloride 1,000 ML IVC SCH (05:21)
[2021-01-13] MEDS ORDERED: *HR* Dextrose 50 % in Water (Vial) 50 ML VIAL IVP PRN (05:53)
[2021-01-13] MEDS ORDERED: D5% in Water 1,000 ML IVC PRN (05:53)
[2021-01-13] MEDS ORDERED: Dextrose Gel 15 GM/37.5 ML TUBE PO PRN ×2 (05:53)
[2021-01-13] MEDS: Metoprolol XL (24 HR) Succ 25 MG TAB.ER.24H PO SCH (12:08)
[2021-01-13] MEDS ORDERED: Acetaminophen 325 MG TABLET PO PRN (12:11)
[2021-01-13] MEDS: Temazepam 15 MG CAPSULE PO PRN (21:51)
[2021-01-14 02:18] LABS: Calcium 8.9 mg/dL (8.6-10.3); Potassium 4.1 mEq/L (3.5-5.1)
[2021-01-14 03:08] VITALS: O2SAT 96
[2021-01-14] MEDS: *HR* Heparin 5,000 UNIT/ML VIAL SQ SCH (06:12)
[2021-01-14 07:09] VITALS: BP 154/82; PULSE 83; TEMP 98
[2021-01-14] MEDS: Metoprolol XL (24 HR) Succ 25 MG TAB.ER.24H PO SCH (07:50)
== END 2021-01-14 09:30 | disposition home or self-care (01) ==
LOC: 2ANU 14:25 → EMEROOARM 14:25 → SUATTDRO 15:47 → 2ANU 16:42
PROVIDERS: ADMIT Internal Medicine; ATTEND Internal Medicine